=== PATIENT | male | born 1965 | race Caucasian/White ===

== ENCOUNTER 2018-06-26 06:17 | Day surgery (SDC) | payer BC ==
--- NOTE | 2018-06-03 09:34 | HP ---
AMENDED REPORT NOW INCLUDES COSIGNER DESIGNATION - ESIGNED BEFORE ADJUSTMENT CC: Dr. Dre Garcia; Dr. Arnol Mendoza * ADMISSION HISTORY AND PHYSICAL: DATE OF ADMISSION: 06/26/18 ATTENDING SURGEON: Dr. James Gamino.* (DICTATED BY SAURABH GOMEZ) CHIEF COMPLAINT: Symptomatic cholelithiasis. HISTORY OF PRESENT ILLNESS: This is a 52-year-old generally healthy male with background history of GERD and nephrolithiasis, who has experienced occasional mid- epigastric and right upper quadrant pain over at least the past 10 years. Symptoms seem to come primarily during post-prandial period with radiation of the pain to the right back, but never severe enough to require emergency room evaluation. His original workup in 2003 apparently showed gallbladder sludge and surgical intervention at that time was deferred. In recent months, since January of this year, he has had experienced increased symptoms, both of GERD but also of those that he differentiates as being gallbladder related. He did undergo ultrasound on 04/03/18, which was positive for multiple gallstones and some mild gallbladder wall thickening at 4 mm. The common duct was normal, the liver was normal, and amylase and lipase were obtained at that time, which were both normal. He has not had any other lab work since then. He was referred to and seen by Dr. Gamino on 04/11/18 at which time his workup was reviewed and he was examined. Dr. Gamino's impression was that at least some of the constellation of the symptoms was indeed related to cholelithiasis and he recommended cholecystectomy. The patient has also been evaluated by Dr. Mendoza and is scheduled for EGD and colonoscopy later today. The EGD will be his first, the colonoscopy will be a followup from last study 8 years ago prompted by a family history of colon cancer in his brother. He reports no interval lower GI symptoms of concern. In regard to gallbladder disease, he has not had any history of dark urine. I did order a CBC and CMP to have a look at his baseline lab work. The patient understands the indications for surgery, the risks, benefits, and alternatives, and would like to proceed as scheduled with laparoscopic cholecystectomy. PAST MEDICAL HISTORY: GERD, nephrolithiasis (x2), needle phobia. Past history of mitral valve prolapse, evaluated by Dr. You about a year ago, which included an echocardiogram, a 30-day event monitor, and a stress test. He was told by Dr. You that everything was normal and that he no longer needed to take atenolol, which was prescribed for his MVP. PAST SURGICAL HISTORY: None other than dental extractions (he does have a significant needle phobia and apparently is difficult blood draw, in addition, he states that many medications including local anesthetics and typical opioids do not seem to work well for him.) CURRENT MEDICATIONS: 1. Famotidine 40 mg q.a.m. 2. Omeprazole 40 mg b.i.d. 3. Sucralfate 1 g a.c. (3 to 4 times daily). 4. [id number] Rolaids p.r.n. 5. He was recently taking meloxicam for knee pain, but was advised to hold until after his EGD by Dr. Mendoza. DRUG ALLERGIES: None known. FAMILY HISTORY: Negative for anesthesia problems, bleeding or clotting disorders, and positive for gallbladder disease in his mother. SOCIAL HISTORY: The patient is . He works at [employer] in [place]. He denies use of tobacco. He drinks 2 to 3 drinks per week and denies any other recreational drug use. REVIEW OF SYSTEMS: General: No recent constitutional symptoms or acute illnesses other than described in the HPI. His weight has been stable. HEENT: No problems reported. Cardiovascular: No chest pain or palpitations. See also above. No history of hypertension. Respiratory: No history of asthma, chronic cough, or shortness of breath. GI: As above per HPI, no additions. : No recent problems reported. Past history of nephrolithiasis. Endocrine: No diabetes or thyroid dysfunction. Musculoskeletal: Bilateral knee pain. Remainder of review of systems is negative. PHYSICAL EXAMINATION GENERAL: Well-nourished, well-developed male, in no acute distress. He is mildly anxious. He is accompanied by his . VITAL SIGNS: Height 5 feet 9 inches and weight 185 pounds. Blood pressure 116/ 64, pulse 80, respirations 16, temperature 98.2. HEENT: Pupils are equal and round, reactive. EOMs intact. No conjunctival pallor or scleral icterus. Oropharynx: Teeth in good repair. No intraoral lesions. NECK: No lymphadenopathy in the cervical or supraclavicular regions. No thyromegaly or masses. LUNGS: Clear to auscultation. No rales or wheezes. HEART: Regular rate and rhythm. No murmur appreciated. ABDOMEN: Flat, soft, nontender to palpation. No palpable masses or organomegaly. Negative Hoang's sign, i.e., no tenderness in the right upper quadrant. No palpable hernias. BACK: No spinous process or CVA tenderness. GENITALIA: Exam deferred. RECTAL: Not done. EXTREMITIES: No edema. NEUROLOGICAL: Grossly intact. SKIN: Warm and dry. No suspicious rashes or lesions. IMPRESSION: Symptomatic cholelithiasis. PLAN: Laparoscopic cholecystectomy. SAURABH GOMEZ [id number] #: [id number] MTDD
[~2018-06-26 06:17] MED LIST: Buffered Lidocaine 0.9% SYRIN* 5 ML/SYR SYRINGE INTRADERM ONE; Famotidine IV* 10 MG/ML 2 ML (20 mg) IV ONE
[2018-06-26] MEDS ORDERED: Buffered Lidocaine 0.9% SYRIN* 5 ML/SYR SYRINGE ONE (06:32)
[2018-06-26] MEDS ORDERED: ceFAZolin 2 GM in NS PREMIX(*) 2 GM/100 ML BAG IVPB ONE (06:32)
[2018-06-26] MEDS ORDERED: Lidocaine 2.5%/Prilocain 2.5%* 5 GM TUBE ONE (06:32)
[2018-06-26] MEDS ORDERED: Famotidine IV* 10 MG/ML 2 ML (20 mg) ONE (06:32)
[2018-06-26] MEDS ORDERED: Bupivacaine 0.25% EPI 200,000* 30 ML SDV ONE (07:13)
[2018-06-26] MEDS ORDERED: fentaNYL* 50 MCG/ML 2 ML VIAL (100 MCG VIAL) ONE (07:29)
[2018-06-26] MEDS ORDERED: Midazolam* 1 MG/ML 5 ML VIAL (5 MG) ONE (07:29)
[2018-06-26] MEDS ORDERED: Rocuronium* 10 MG/ML VIAL ONE (07:50)
[2018-06-26] MEDS ORDERED: EPHEDrine (Pressors)* 50 MG/ML VIAL ONE (08:00)
[2018-06-26] MEDS ORDERED: Dexamethasone IV* 4 MG/ML 1 ML (4 MG) ONE (08:00)
[2018-06-26] MEDS ORDERED: Lidocaine 2% PF * 5 ML VIAL ONE (08:00)
[2018-06-26] MEDS ORDERED: Propofol* 10 MG/ML 20 ML BTL IV PUSH ONE (08:00)
[2018-06-26] MEDS ORDERED: Succinylcholine* 20 MG/ML 10 ML VIAL ONE (08:00)
[2018-06-26] MEDS ORDERED: Ketorolac INJ* 30 MG/ML 1 ML VIAL ONE (08:00)
[2018-06-26] MEDS ORDERED: Ondansetron INJ* 2 MG/ML VIAL ONE (08:00)
[2018-06-26] MEDS ORDERED: DiMENhydriNATE IV* 50 MG/ML VIAL ONE (08:00)
[2018-06-26] MEDS ORDERED: oxyCODONE TAB* 5 MG TAB PO PRN (08:08)
[2018-06-26] MEDS ORDERED: Acetaminophen TAB* 325 MG PO PRN (08:08)
[2018-06-26] MEDS ORDERED: DiMENhydriNATE IV* 50 MG/ML VIAL IV PUSH PRN (08:08)
[2018-06-26] MEDS ORDERED: Naloxone* 0.4 MG/ML 1 ML VIAL IV PRN (08:08)
[2018-06-26] MEDS ORDERED: HYDROmorphone INJ1* 1 MG/ML SYRINGE ONE ×2 (08:10→09:47)
[2018-06-26] MEDS: HYDROmorphone INJ1* 1 MG/ML SYRINGE IV PRN ×3 (09:48→10:10)
[2018-06-26 12:21] VITALS: BP 109/71
--- NOTE | 2018-06-26 23:45 | OP ---
CC: Dr. Mendoza; Dr. Garcia; Dr. You * DATE OF OPERATION: 06/26/18 - [facility] DATE OF : 65 SURGEON: James Gamino MD SUPERINTENDENT TRANSPORTATION: Arleth Rodriguez NP ANESTHESIOLOGIST: Dr. Jean Baptiste. ANESTHESIA: General anesthetic, local infiltration. PRE-OP DIAGNOSIS: Symptomatic cholelithiasis. POST-OP DIAGNOSIS: Symptomatic cholelithiasis. OPERATIVE PROCEDURE: Laparoscopic cholecystectomy. DESCRIPTION OF PROCEDURE: The patient was supine on the operative table. After adequate general anesthetic, compression stockings, Alana Hugger warmer, and intravenous antibiotics, the abdomen was clipped and prepped with antiseptic , draped in a sterile fashion. Local infiltrative anesthesia was administered. Small umbilical incision was created. Blunt port cannula was inserted at the umbilicus. Abdomen was insufflated with carbon dioxide. Additional cannulae, 12- mm subxiphoid and 5 mm right upper quadrant, right anterior axillary line were placed through small stab wounds under direct vision. The gallbladder was tended upward, areola tissue was taken down off the cystic duct and cystic artery, which were readily clipped and divided. The gallbladder was taken off the liver bed using electrocautery. There was no spillage. Hemostasis was achieved with electrocautery. Gallbladder was removed through the subxiphoid port, which needed to be enlarged somewhat to the size of the stones. The operative field was irrigated with warm saline solution. Free fluid was suctioned out. Everything was in good condition. The fascia of the epigastric incision was closed with 0 Vicryl using an Endo close device and the umbilicus was also closed with 0 Vicryl followed by 5-0 Vicryl for the skin in all cases followed by Steri-Strips. He tolerated the procedure well, was awakened, extubated, and brought to Recovery in good condition. No complications. No drains. Pathologic specimen is gallbladder. Sponge and instrument counts correct. Estimated blood loss 30 mL. [id number] #: [id number] MTDD
== END 2018-06-26 12:43 | disposition home or self-care (01) ==
LOC: OR 06:17
PROVIDERS: ATTEND Surgery
DX: K80.10 Calculus of gallbladder with chronic cholecystitis without obstruction (principal); K21.9 Gastro-esophageal reflux disease without esophagitis; Z87.442 Personal history of urinary calculi
CPT/HCPCS: 83516; 86256; 88304; A9270-GY; J0330; J0690; J1100; J1170; J1240; J1885; J2250; J2405; J2704; J3010